=== PATIENT | female | born 2005 | race Two or more races ===

== ENCOUNTER 2024-07-11 08:25 | Emergency (ER) | payer MEDICAID, SELFPAY ==
--- NOTE | 2024-07-11 08:32 | EDNOTE_ITS ---
ED OB Contraction Preg RMI/HPI General Chief complaint: OB/Uterine Contractions Stated complaint: back pain , cramping, 13 weeks IUP , S/S X 1 DAY Time Seen by Provider: 07/11/24 08:41 Arrival date/time: 07/11/24 08:25 RME / HPI RME / HPI Narrative: This section includes all my notes and documentations, including HPI, PE, and ED course.? Matt Mabry MD HPI: 19 year old female who is currently about 13 weeks gestational age A2 presents to the ED for complaint of lower abdominal and back pain beginning 2 days ago. Described as cramping in sensation, rating as moderate. Denies any fevers, chills, sweats, vomiting, diarrhea, urinary symptoms, or vaginal bleeding. States she last had an ultrasound performed at 9 weeks gestation showing an IUP. No other complaints. ROS: All negative except as documented in HPI. Physical Exam: General:? Alert and oriented.? No acute distress when remaining still.?? Eyes:? Conjunctivae and lids clear.? ENT:? No nasal congestion.? Neck:? Supple.? Heart:? RRR.? Lungs:? No respiratory distress.? Good air movement.? Abdomen:? Soft and nontender.?? Back: No CVA tenderness. Legs:? No clubbing, cyanosis, edema.? Skin:? Warm and dry.?? Neuro:? Alert and oriented X 3.?? I reviewed all diagnostic test results. My review of the ultrasound report is IUP, GA 13 6/7 weeks. Blood tests and urine tests?unremarkable, except hCG [id number]. At this point, diagnoses include?threatened miscarriage. Recommended expectant management. Based on my best medical judgment, made decision no further evaluation or treatment indicated at this time.? Patient understands and agrees to the discha rge instructions customized and printed, see below. Discharge Instructions from Dr. Mabry: 1.? ? ? After evaluation, your baby is alive and doing well. 2.? ? ? Today, your GA is 13 6/7 weeks based on the ultrasound. 3.? ? ? Only time will determine whether you will have a successful or you will have a miscarriage.? If your symptoms stop, you can have a successful .? If your symptoms worsen with heavy bleeding, you may have a miscarriage.? If you have a miscarriage, unfortunately we won?t be able to save the baby because it?s too early.? Under 20 weeks, unfortunately we can?t help.?? 4.? ? ? See your natural history collections curator on 07/13/2024 for recheck and further care.? No sexual activity until cleared by a doctor taking care of you.?? Ask to review all test results and official radiology reports, to make sure you receive all necessary follow-ups and monitoring. Topical lidocaine patches as needed. 5.? ? ? Seek immediate medical care for severe bleeding (soaking more than 3 pads per hour), intolerable pain, or with any concerns.? Related Data Previous Rx's ?Medication ?Instructions ?Recorded albuterol sulfate 90 mcg/actuation 2 puff inhalation Q 6H PRN 07/13/19 aerosol inhaler (Ventolin HFA) shortness of breath or wheezing #8.5 grams amoxicillin 250 mg/5 mL oral 500 mg (10 mL) PO TID #10 0 mL 04/03/22 suspension lidocaine 5 % topical patch 2 patch topical QDAY PRN p ain #30 07/11/24 (Lidoderm) ea Allergies Allergy/AdvReac Type Severity Reaction Status Date / Time No Known Allergies Allergy Verified 07/11/24 08:26 Review of Systems Review of Systems Systems Reviewed: All systems reviewed, normal except as documented Past Medical History Past Medical History CARDIAC: Negative Cardiac Disorders GENITOURINARY: Negative Renal Disease Social History SMOKING STATUS: Never smoker SUBSTANCE USE: does not use ED Exam Narrative Physical exam: As noted in HPI Course Quality Measures none Orders Category Date Time Status US OB <= 14 weeks fetus Stat Exams 07/11/24 08:41 Completed Beta HCG,Quantitative Stat Lab 07/11/24 09:46 Completed CBC Stat Lab 07/11/24 09:46 Completed CMP [Comprehensive Metabolic Panel] Stat Lab 07/11/24 09:46 Completed Mag [Magnesium] Stat Lab 07/11/24 09:46 Completed Urinalysis Stat Lab 07/11/24 10:20 Completed Acetaminophen Tab [Tylenol Tab] Med 07/11/24 09:01 Discontinued 650 mg PO X1 ONE Acetaminophen Tab [Tylenol Tab] Med 07/11/24 09:01 Discontinued 650 mg PO X1 ONE oxyCODONE/APAP 5/325 [Percocet 5/325] Med 07/11/24 08:41 Discontinued 2 tab PO X1 ONE Vital Signs Vital signs: Vital Signs Temperature 98.6 F 07/11/24 08:34 Pulse Rate 87 07/11/24 08:34 Respiratory Rate 16 07/11/24 08:34 Blood Pressure 114/72 07/11/24 08:34 Pulse Oximetry (%) 99 07/11/24 08:34 Oxygen Delivery Method Room Air 07/11/24 08:34 Pulse ox is 99% on room air which is adequate. OB/Uterine Contractions MDM Narrative MDM Narrative:: Maryann Charles am scribing for and in the presence of Dr. Mabry. Patient data External records reviewed:: [facility] previous records (I reviewed ED visit on 04/21/2022) Clinical information provided by:: patient Social determinants that could affect healthcare access:: none Patient has the following chronic illnesses:: Hx of appendectomy, miscarriages, no chronic medical hx reported How is presenting disease/condition affected by chronic disease/condition?: no chronic disease Evaluation data The following diagnostics were reviewed and interpreted by me:: lab results and radiology exam(s) Lab and/or radiology exams considered but not ordered:: None Interpretation Summary: My review of the ultrasound performed shows viable IUP measuring 13w6d and heart tones at 157. Medications / Prescriptions Medications or Prescriptions considered but not ordered:: None Medication administrations:: Medication Administration History Discontinued Medications Acetaminophen (Acetaminophen 325 Mg Tablet) 650 mg PO X1 ONE Stop: 07/11/24 09:02 Last Admin: 07/11/24 09:08 Dose: 650 mg Documented By: [facility] Acetaminophen (Acetaminophen 325 Mg Tablet) 650 mg PO X1 ONE Stop: 07/11/24 09:02 Last Admin: 07/11/24 09:06 Dose: Not Given Documented By: [facility] Non-Admin Reason: Duplicate Medication on eMAR Oxycodone/Acetaminophen (Oxycodone/Apap 5/325 Tablet) 2 tab PO X1 ONE Stop: 07/11/24 08:42 Last Admin: 07/11/24 09:00 Dose: Not Given Documented By: [facility] Non-Admin Reason: Cancelled by Provider Patient given Tylenol Consultations Consultation(s) initiated? (list below): No Diagnosis OB Contractions Differential Diagnosis: other (Threatened , missed , normal , UTI, pyelonephritis) Most likely diagnosis given after review of the tests above:: Threatened miscarriage Admission Indicated Admission indicated?: not indicated Explain why admission is indicated or not indicated:: Does not meet admission criteria Admission Request Was there a request for admission?: No Disposition Plan Disposition Plan: Discharge Discharge Attestation Discharge Attestation: The patient and all family members were given an opportunity to ask questions and understood the discharge instructions. Discharge instructions specifically effects, indications for sooner follow up or return to the emergency department, and the expected course of current diagnosis. Patient condition: Stable Discharge Plan Plan Patient Disposition: HOME (Self Care) Disposition Comment: HOME Prescriptions/Referrals Prescriptions/Med Rec: New lidocaine [Lidoderm] 5 % adhesive patch,medicated 2 patch topical QDAY PRN (Reason: pain) Qty: 30 0RF Rx Instructions: leave on most painful area for up to 12 hrs No Action albuterol sulfate [Ventolin HFA] 90 mcg/actuation HFA aerosol inhaler 2 puff INH Q6H PRN (Reason: shortness of breath or wheezing) Qty: 8.5 0RF amoxicillin 250 mg/5 mL suspension for reconstitution 500 mg PO TID Qty: 100 0RF Referrals: Ryan Aldrich MD [Primary Care Provider] - In 1 week Problem List Clinical Impression: Threatened miscarriage Patient/Caregiver Discharge Instructions Discharge Activity: activity as tolerated Education Materials: ED Possible Miscarriage ... Additional Instructions: Discharge Instructions from Dr. Mabry: 1.? ? ? After evaluation, your baby is alive and doing well. 2.? ? ? Today, your GA is 13 6/7 weeks based on the ultrasound. 3.? ? ? Only time will determine whether you will have a successful or you will have a miscarriage.? If your symptoms stop, you can have a successful .? If your symptoms worsen with heavy bleeding, you may have a miscarriage.? If you have a miscarriage, unfortunately we won?t be able to save the baby because it?s too early.? Under 20 weeks, unfortunately we can?t help.?? 4.? ? ? See your natural history collections curator on 07/13/2024 for recheck and further care.? No sexual activity until cleared by a doctor taking care of you.?? Ask to review all test results and official radiology reports, to make sure you receive all necessary follow-ups and monitoring. Topical lidocaine patches as needed. 5.? ? ? Seek immediate medical care for severe bleeding (soaking more than 3 pads per hour), intolerable pain, or with any concerns.? Print Language: Egyptian Stand Alone Forms: Radha Award Info., Patient Portal Info Letter
[2024-07-11 08:34] VITALS: BP 114/72; PULSE 87; RESP 16; TEMP 37; O2SAT 99; BMI 29.5
--- NOTE | 2024-07-11 08:41 | XR_ITS ---
Examination: Complete OB ultrasound, less than 14 weeks, transabdominal Date and time of exam: July 03, 2024 0908 hours INDICATIONS: Lower abdominal pain back pain onset today Technique: Obstetrical ultrasound images less than 14 weeks performed via transabdominal imaging Findings: A normal shaped single intrauterine gestation is present in the uterus. pole 7.8 cm corresponds to 13 weeks 6 days gestational age Cardiac motion 157 BPM Ultrasonographic survey of visible and placental structures unremarkable. Amniotic fluid volume appears appropriate for this estimated gestational age. Right ovary 2.9 x 1.8 x 4.7 cm arterial flow Left ovary 5.6 x 1.8 x 3.5 cm, 20 mm corpus luteum cyst IMPRESSION: Viable intrauterine gestation 13 weeks 6 days.
[2024-07-11] MEDS: ACETAMINOPHEN 325 MG TABLET 650 MG PO (09:08)
[2024-07-11 10:07] LABS: Basophils % (Auto) 0 % (0-2.5); Eosinophils # (Auto) 0.1 Thou/mm3 (0.0-0.5); Eosinophils % (Auto) 1 % (0-10); Hematocrit 36.3 % (36.0-46.0); Immature Granulocytes % (Auto) 0 % (0-0); Immature Granulocytes Auto 0.03 Thou/mm3 (0.00-0.00); Lymphocytes # (Auto) 2.8 Thou/mm3 (1.0-4.8); Lymphocytes % (Auto) 28 % (10-50); Mean Corpuscular HGB Conc 33.1 g/dl (31.0-37.0); Mean Corpuscular Hemoglobin 27.1 pg (25.0-35.0); Mean Corpuscular Volume 82 fL (80-100); Monocytes # (Auto) 0.6 Thou/mm3 (0.0-0.8); Monocytes % (Auto) 6 % (0-12); Neutrophils # (Auto) 6.2 Thou/mm3 (1.8-7.7); Neutrophils % (Auto) 64 % (37-80); Nucleated Red Blood Cell % 0 /100 WBC (0); Platelet Count 250 Thou/mm3 (140-440); RDW Standard Deviation 39.2 fL (36.4-46.3); Red Blood Count 4.42 Miln/mm3 (4.00-5.20); White Blood Count 9.7 Thou/mm3 (3.6-11.0)
[2024-07-11 10:27] LABS: Collection Type, Urine Clean Catch
[2024-07-11 10:41] LABS: Alanine Aminotransferase 19 U/L (10-49); Albumin, Serum 4.5 gm/dL (3.5-5.0); Albumin/Globulin Ratio 1.6 (1.2-2.2); Alkaline Phosphatase 59 U/L (46-116); Anion Gap 9 (7-16); Aspartate Amino Transferase < 10 U/L (0-34); BUN/Creatinine Ratio 8 Ratio (12-20); Bilirubin,Total 0.3 mg/dL (0.3-1.2); Blood Urea Nitrogen 5 mg/dL (9-23); Calcium 9.4 mg/dL (8.3-10.6); Calcium (Corrected) 9.4 mg/dL (8.5-10.1); Chloride 103 mMol/L (98-107); Creatinine (Component) 0.6 mg/dL (0.6-1.3); Globulin 2.8 gm/dL (2.3-3.5); Glucose 106 mg/dL (74-106); Magnesium 1.8 mg/dL (1.6-2.6); Osmolality,Calculated 267 (275-295); Potassium 4.2 mMol/L (3.4-5.1); Sodium 135 mMol/L (136-145); Total Protein 7.3 gm/dL (5.7-8.2); eGFR > 60 See Note
[2024-07-11 10:49] LABS: Amorphous Crystals,Urine Present (Absent); Bilirubin,Urine Negative (Negative); Blood,Urine Negative (Negative); Color,Urine Yellow (Lt Yel-Yel); Glucose, Urine Negative (Negative); Ketones,Urine Negative (Negative); Leukocyte Esterase,Urine Positive (Negative); Nitrite,Urine Negative (Negative); Protein,Urine 1+ (Neg - Trace); RBC,Urine 1 /hpf (0-3); Specific Gravity,Urine 1.023 (1.001-1.035); Squamous Epithelial Cell,Urine 26 /hpf (0-5); WBC,Urine 3 /hpf (0-5)
[2024-07-11 10:51] LABS: Clarity,Urine Turbid (Clear/Hazy)
[2024-07-11 11:22] LABS: Beta HCG,Quantitative 69419 mIU/mL (<5.0)
== END 2024-07-11 12:38 | disposition home or self-care (01) ==
PROVIDERS: Emergency Provider Emergency Medicine; PCP Family Medicine
DX: O20.0 Threatened abortion (principal); Z3A.13 13 weeks gestation of pregnancy
CPT/HCPCS: 36415; 76801; 80053; 81001; 83735; 84702; 85025; 99284; A9270

== ENCOUNTER 2024-09-08 01:51 | Emergency (ER) | payer MEDICAID, SELFPAY ==
[2024-09-08 01:51] VITALS: BMI 23.1
[2024-09-08 02:00] VITALS: BP 122/80; PULSE 72; RESP 18; TEMP 36.9; O2SAT 99
--- NOTE | 2024-09-08 03:55 | EDNOTE_ITS ---
ED Ear RME/HPI General Chief complaint: Ear Stated complaint: BUG IN RT EAR Time Seen by Provider: 09/08/24 02:12 Arrival date/time: 09/08/24 01:51 19F with no significant PMH presents to ED with bug in R ear. Patient states she felt it stop moving prior to arrival in ED. Limitations: no limitations Related Data Previous Rx's ?Medication ?Instructions ?Recorded albuterol sulfate 90 mcg/actuation 2 puff inhalation Q 6H PRN 07/13/19 aerosol inhaler (Ventolin HFA) shortness of breath or wheezing #8.5 grams amoxicillin 250 mg/5 mL oral 500 mg (10 mL) PO TID #10 0 mL 04/03/22 suspension lidocaine 5 % topical patch 2 patch topical QDAY PRN p ain #30 07/11/24 (Lidoderm) ea [id number] 3.5 4 drp otic (ear) TID 5 days #10 mL 09/08/24 mg-10,000 unit/mL-1 % ear drops,susp Allergies Allergy/AdvReac Type Severity Reaction Status Date / Time No Known Allergies Allergy Verified 07/11/24 08:26 Review of Systems Review of Systems Systems Reviewed: All systems reviewed, normal except as documented Constitutional Constitutional: Reports system reviewed and no additional complaints, except as documented, Denies fever(s) and Denies headache(s) ENT Ears, Nose, Mouth, and Throat: Denies disequilibrium and Denies headache(s) Cardiovascular Cardiovascular: Reports system reviewed and no additional complaints, except as documented, Denies chest pain and Denies dyspnea Respiratory Respiratory: Reports system reviewed and no additional complaints, except as documented, Denies cough and Denies dyspnea Gastrointestinal Gastrointestinal: Reports system reviewed and no additional complaints, except as documented, Denies abdominal pain, Denies nausea and Denies vomiting Neurologic Neurologic: Reports system reviewed and no additional complaints, except as documented, Denies confusion, Denies disequilibrium and Denies headache(s) Psychiatric Psychiatric: Denies confusion Past Medical History Past Medical History NEUROLOGIC: Negative Seizures CARDIAC: Negative Cardiac Disorders or Congestive Heart Failure RESPIRATORY: Negative Chronic Obstructive Pulmonary Disease (COPD) or Asthma GENITOURINARY: Negative Renal Disease ENDOCRINE: Negative Diabetes Mellitus Type 1 or Diabetes Mellitus Type 2 HEMATOLOGIC: Negative Sickle Cell Disease OTHER HISTORY: Negative Blood Transfusions, Blood Transfusion Reaction or Anesthesia Reactions Social History SMOKING STATUS: Never smoker SUBSTANCE USE: does not use ED Exam General Limitations: Present no limitations General appearance: Present alert and in no apparent distress Head Head exam: Present atraumatic Eye Eye exam: Present normal appearance, PERRL and EOMI ENT ENT exam: Present normal exam, normal oropharynx and mucous membranes moist Neck Neck exam: Present normal inspection, full ROM and trachea midline Chest Chest inspection: Present normal inspection and symmetric chest wall rise Respiratory Respiratory exam: Present normal lung sounds bilaterally Cardiovascular Cardiovascular exam: Present regular rate, normal rhythm and normal heart sounds Abdominal Exam Abdominal exam: Present soft and normal bowel sounds Extremities Exam Extremities exam: Present normal inspection and full ROM Back Exam Back exam: Present normal inspection and full ROM Neurological Exam Neurological exam: Present alert, oriented X3 and CN II-XII intact Psychiatric Psychiatric exam: Present normal affect and normal mood Skin Skin exam: Present warm, dry, intact and normal color Course Quality Measures none Vital Signs Vital signs: Vital Signs Temperature 98.5 F 09/08/24 02:00 Pulse Rate 72 09/08/24 02:00 Respiratory Rate 18 09/08/24 02:00 Blood Pressure 122/80 09/08/24 02:00 Pulse Oximetry (%) 99 09/08/24 02:00 Oxygen Delivery Method Room Air 09/08/24 02:00 O2 at 99% on RA and WNLs Ear MDM Narrative MDM Narrative:: 19F with no significant PMH presents to ED with bug in R ear. Patient states she felt it stop moving prior to arrival in ED. Physical exam reveals no bug in R ear, even after irrigation. Patient is afebrile, calm, and alert. Bug likely crawled out prior to arrival in ED. Patient data External records reviewed:: [facility] previous records Clinical information provided by:: patient Social determinants that could affect healthcare access:: none Patient has the following chronic illnesses:: none How is presenting disease/condition affected by chronic disease/condition?: no chronic disease Evaluation data The following diagnostics were reviewed and interpreted by me:: other (specify) (none) Lab and/or radiology exams considered but not ordered:: not ordered Interpretation Summary: n/a Medications / Prescriptions Medications or Prescriptions considered but not ordered:: not ordered Medication administrations:: n/a Consultations Consultation(s) initiated? (list below): No Diagnosis Ear Differential Diagnosis: otitis externa, otitis media, foreign body in ear, ruptured TM, cerumen impaction and other (normal ear exam) Most likely diagnosis given after review of the tests above:: normal ear exam Admission Indicated Admission indicated?: not indicated Admission Request Was there a request for admission?: No Disposition Plan Disposition Plan: Discharge Discharge Attestation Discharge Attestation: The patient and all family members were given an opportunity to ask questions and understood the discharge instructions. Discharge instructions specifically effects, indications for sooner follow up or return to the emergency department, and the expected course of current diagnosis. Patient condition: Stable Discharge Plan Plan Patient Disposition: HOME (Self Care) Disposition Comment: Stable Prescriptions/Referrals Prescriptions/Med Rec: New qxielrhl-ugyywnjgq-HH 3.5-10,000-1 mg/mL-unit/mL-% drops,suspension 4 drp otic (ear) TID 5 Days Qty: 10 0RF No Action albuterol sulfate [Ventolin HFA] 90 mcg/actuation HFA aerosol inhaler 2 puff INH Q6H PRN (Reason: shortness of breath or wheezing) Qty: 8.5 0RF lidocaine [Lidoderm] 5 % adhesive patch,medicated 2 patch topical QDAY PRN (Reason: pain) Qty: 30 0RF Rx Instructions: leave on most painful area for up to 12 hrs amoxicillin 250 mg/5 mL suspension for reconstitution 500 mg PO TID Qty: 100 0RF Problem List Clinical Impression: Normal ear exam Patient/Caregiver Discharge Instructions Additional Instructions: Please follow-up with PCP within 24-48 hours and return immediately if symptoms worsen. Print Language: Maori Stand Alone Forms: Patient Portal Info Letter [place] Supervising Physician ASHA Supervising Physician: Dr. Hackett
== END 2024-09-08 02:25 | disposition home or self-care (01) ==
LOC: SERX 02:25
PROVIDERS: Emergency Provider Emergency Medicine; PCP Family Medicine
DX: T16.1XXA Foreign body in right ear, initial encounter (principal); W44.F4XA Insect entering into or through a natural orifice, initial encounter
CPT/HCPCS: 99281; 99283

== ENCOUNTER 2024-11-14 19:33 | Observation (INO) | payer MEDICAID, SELFPAY ==
[2024-11-14] VITALS (35 sets, daily range): BP systolic 111; BP diastolic 76; PULSE 75–129; RESP 16–98; TEMP 36.8; O2SAT 97–100; BMI 31.0
--- NOTE | 2024-11-14 20:22 | XR_ITS ---
Examination: Complete OB ultrasound greater than 14 weeks Date and time of exam: November 14, 2024 2113 hours INDICATION: Patient fell today with injury to the pelvis, vaginal bleeding Findings: Viable intrauterine single fetus with single amniotic sac presentation cephalic Cardiac motion 141 BPM Placenta anterior grade 2 no abruption Umbilical cord insertion 3 vessel Amniotic fluid index 11.4 cm spine maternal right Cervix 3.2 cm Ovaries obscured by bowel gas. Composite estimated gestational age based on BPD, head circumference, abdominal circumference, femur length is 33 weeks 3 days Estimated weight 2095 g. Survey of intracranial anatomy, spinal anatomy, abdominal anatomy, four-chamber heart performed with no abnormalities identified. Impression: Viable intrauterine gestation cephalic presentation Placenta anterior with no abruption.
== END 2024-11-14 22:50 | disposition home or self-care (01) ==
PROVIDERS: Admitting Provider Obstetrics & Gynecology; Visit Provider Obstetrics & Gynecology
DX: O9A.213 Injury, poisoning and certain other consequences of external causes complicating pregnancy, third trimester (principal); S39.93XA Unspecified injury of pelvis, initial encounter; Z3A.33 33 weeks gestation of pregnancy; W18.2XXA Fall in (into) shower or empty bathtub, initial encounter
CPT/HCPCS: 59025; 59899; 76805; G0378

== ENCOUNTER 2024-12-22 15:04 | Observation (INO) | payer MEDICAID, SELFPAY ==
[2024-12-22] VITALS (23 sets, daily range): BP systolic 117–133; BP diastolic 60–89; PULSE 79–117; RESP 18–99; TEMP 36.4; O2SAT 99–100; BMI 33.3
[2024-12-22 15:51] LABS: Basophils # (Auto) 0.0 Thou/mm3 (0.0-0.2); Basophils % (Auto) 0 % (0-2.5); Eosinophils # (Auto) 0.0 Thou/mm3 (0.0-0.5); Eosinophils % (Auto) 0 % (0-10); Hematocrit 29.8 % (36.0-46.0); Hemoglobin 9.5 g/dL (12.0-16.0); Immature Granulocytes Auto 0.04 Thou/mm3 (0.00-0.00); Lymphocytes # (Auto) 2.4 Thou/mm3 (1.0-4.8); Lymphocytes % (Auto) 21 % (10-50); Mean Corpuscular HGB Conc 31.9 g/dl (31.0-37.0); Mean Corpuscular Hemoglobin 22.8 pg (25.0-35.0); Mean Corpuscular Volume 72 fL (80-100); Monocytes # (Auto) 0.7 Thou/mm3 (0.0-0.8); Monocytes % (Auto) 6 % (0-12); Neutrophils # (Auto) 8.2 Thou/mm3 (1.8-7.7); Neutrophils % (Auto) 72 % (37-80); Nucleated Red Blood Cell # 0.00 Thou/mm3 (0.00-0.00); Nucleated Red Blood Cell % 0 /100 WBC (0); Platelet Count 327 Thou/mm3 (140-440); RDW Standard Deviation 37.4 fL (36.4-46.3); Red Blood Count 4.17 Miln/mm3 (4.00-5.20); White Blood Count 11.4 Thou/mm3 (3.6-11.0)
[2024-12-22 16:07] LABS: Creatinine,Random Urine 138 mg/dL (30-125); Protein Total, Random Urine 36 mg/dL (1-14)
[2024-12-22 16:08] LABS: Alanine Aminotransferase 12 U/L (10-49); Albumin, Serum 3.8 gm/dL (3.5-5.0); Albumin/Globulin Ratio 1.4 (1.2-2.2); Alkaline Phosphatase 155 U/L (46-116); Anion Gap 10 (7-16); Aspartate Amino Transferase 12 U/L (0-34); BUN/Creatinine Ratio 12 Ratio (12-20); Bilirubin,Total 0.3 mg/dL (0.3-1.2); Blood Urea Nitrogen 7 mg/dL (9-23); Calcium 8.7 mg/dL (8.3-10.6); Calcium (Corrected) 8.9 mg/dL (8.5-10.1); Carbon Dioxide 20.6 mMol/L (20.0-31.0); Chloride 107 mMol/L (98-107); Creatinine (Component) 0.6 mg/dL (0.6-1.3); Estimated Creatinine Clearance 159.3 mL/min (>60); Globulin 2.8 gm/dL (2.3-3.5); Glucose 105 mg/dL (74-106); LDH (Lactate Dehydrogenase) 130 U/L (120-246); Osmolality,Calculated 273 (275-295); Potassium 4.3 mMol/L (3.4-5.1); Sodium 138 mMol/L (136-145); Total Protein 6.6 gm/dL (5.7-8.2); Uric Acid 4.2 mg/dL (3.1-7.8); eGFR > 60 See Note
[2024-12-22 16:23] LABS: Fibrinogen 547 mg/dL (175-375); INR 0.9 (0.9-1.3); Partial Thromboplastin Time 20.8 Seconds (22.0-36.0); Prothrombin Time 9.9 Seconds (9.0-12.2)
--- NOTE | 2024-12-22 16:43 | PC.NURSE ---
1642 discharge instructions reviewed, labor precautions, pre eclampsia precautions, kick counts, copy given, pt agrees/understands.
== END 2024-12-22 16:45 | disposition home or self-care (01) ==
PROVIDERS: Admitting Provider Student in an Organized Health Care Education/Training Program; Visit Provider Student in an Organized Health Care Education/Training Program
DX: O26.893 Other specified pregnancy related conditions, third trimester (principal); Z3A.36 36 weeks gestation of pregnancy; R03.0 Elevated blood-pressure reading, without diagnosis of hypertension
CPT/HCPCS: 36415; 59025; 59899; 80053; 82570; 83615; 84156; 84550; 85025; 85384; 85610; 85730

== ENCOUNTER 2024-12-23 14:34 | Observation (INO) | payer MEDICAID, SELFPAY ==
[2024-12-23] VITALS (8 sets, daily range): BP systolic 124–125; BP diastolic 76–78; PULSE 93–122; RESP 20–100; TEMP 36.3; O2SAT 99–100; BMI 33.3
== END 2024-12-23 15:15 | disposition home or self-care (01) ==
PROVIDERS: Admitting Provider Student in an Organized Health Care Education/Training Program; PCP Family Medicine; Visit Provider Student in an Organized Health Care Education/Training Program
DX: O26.893 Other specified pregnancy related conditions, third trimester (principal); Z3A.36 36 weeks gestation of pregnancy; R10.2 Pelvic and perineal pain; M54.9 Dorsalgia, unspecified
CPT/HCPCS: 59025; 59899

== ENCOUNTER 2025-01-02 21:21 | Observation (INO) | payer MEDICAID, SELFPAY ==
[2025-01-02] VITALS (12 sets, daily range): BP systolic 108; BP diastolic 69; PULSE 78–151; RESP 18–99; TEMP 36.8; O2SAT 97–99; BMI 34.7
== END 2025-01-02 22:30 | disposition home or self-care (01) ==
PROVIDERS: Admitting Provider Student in an Organized Health Care Education/Training Program; Visit Provider Student in an Organized Health Care Education/Training Program
DX: O47.1 False labor at or after 37 completed weeks of gestation (principal); Z3A.38 38 weeks gestation of pregnancy
CPT/HCPCS: 59025; 59899

== ENCOUNTER 2025-01-04 11:40 | Outpatient (RCR) | payer MEDICAID, SELFPAY ==
[2024-11-20 11:34] VITALS: BP 112/61; PULSE 93; RESP 16; TEMP 36.8
[2024-11-23 12:55] VITALS: BP 109/61; PULSE 102; RESP 16
[2024-11-27 11:56] VITALS: BP 109/69; PULSE 122; RESP 20; TEMP 36.8
[2024-11-30 11:41] VITALS: BP 109/76; PULSE 108; RESP 16; TEMP 36.7
[2024-12-04 12:05] VITALS: BP 120/74; PULSE 77; RESP 16; TEMP 36.8
[2024-12-07 11:56] VITALS: BP 119/72; PULSE 105; RESP 16; TEMP 36.7
[2024-12-11 11:28] VITALS: BP 119/80; PULSE 103; RESP 16; TEMP 36.7
[2024-12-14 11:26] VITALS: BP 114/79; PULSE 89; RESP 16; TEMP 36.8
[2024-12-18 11:19] VITALS: BP 112/73; PULSE 81; RESP 16; TEMP 36.8
[2024-12-21 11:17] VITALS: BP 119/68; PULSE 86; RESP 16; TEMP 36.8
[2024-12-25 11:26] VITALS: BP 119/77; PULSE 92; RESP 16; TEMP 36.7
[2024-12-28 11:28] VITALS: BP 124/74; PULSE 89; RESP 16; TEMP 36.7
--- NOTE | 2025-01-01 11:49 | XR_ITS ---
Examination: Biophysical profile, ultrasound Date and time of exam: January 01, 2025 1209 hours INDICATIONS: Decreased movement beginning 2 days ago Technique: Multiple transabdominal sonographic images of the pelvis abdomen obtained. Attention is directed to the breathing movement, gross body movement, amniotic fluid volume and tone. Findings: Amniotic fluid index 9.6 cm Total biophysical profile is 8 of 8. breathing movement is 2. Gross body movement is 2. tone is 2. Qualitative amniotic fluid volume is 2 Impression: Biophysical profile is 8 of 8.
[2025-01-01 12:38] VITALS: BP 126/80; PULSE 88; RESP 18; TEMP 36.8
[2025-01-04 11:54] VITALS: BP 119/66; PULSE 75; RESP 16; TEMP 36.7
== END 2025-01-04 23:59 | disposition home or self-care (01) ==
LOC: S4S1 11:40
PROVIDERS: Referring Provider Student in an Organized Health Care Education/Training Program; Visit Provider Student in an Organized Health Care Education/Training Program
DX: O24.415 Gestational diabetes mellitus in pregnancy, controlled by oral hypoglycemic drugs (principal); Z3A.38 38 weeks gestation of pregnancy
CPT/HCPCS: 59025; 76819

== ENCOUNTER 2025-01-07 19:02 | Inpatient (IN) | payer MEDICAID, SELFPAY ==
[2025-01-07] VITALS (27 sets, daily range): BP systolic 111–168; BP diastolic 64–98; PULSE 62–129; RESP 16; TEMP 36.7; O2SAT 96–99; BMI 34.3
[2025-01-07 19:50] LABS: Basophils # (Auto) 0.0 Thou/mm3 (0.0-0.2); Basophils % (Auto) 0 % (0-2.5); Eosinophils # (Auto) 0.0 Thou/mm3 (0.0-0.5); Eosinophils % (Auto) 0 % (0-10); Hematocrit 31.9 % (36.0-46.0); Hemoglobin 9.8 g/dL (12.0-16.0); Immature Granulocytes Auto 0.03 Thou/mm3 (0.00-0.00); Lymphocytes # (Auto) 2.8 Thou/mm3 (1.0-4.8); Lymphocytes % (Auto) 27 % (10-50); Mean Corpuscular HGB Conc 30.7 g/dl (31.0-37.0); Mean Corpuscular Hemoglobin 22.4 pg (25.0-35.0); Mean Corpuscular Volume 73 fL (80-100); Monocytes # (Auto) 0.6 Thou/mm3 (0.0-0.8); Monocytes % (Auto) 6 % (0-12); Neutrophils # (Auto) 7.0 Thou/mm3 (1.8-7.7); Neutrophils % (Auto) 67 % (37-80); Nucleated Red Blood Cell # 0.00 Thou/mm3 (0.00-0.00); Nucleated Red Blood Cell % 0 /100 WBC (0); Platelet Count 330 Thou/mm3 (140-440); RDW Standard Deviation 40.0 fL (36.4-46.3); Red Blood Count 4.38 Miln/mm3 (4.00-5.20); White Blood Count 10.5 Thou/mm3 (3.6-11.0)
--- NOTE | 2025-01-07 20:33 | XR_ITS ---
Examination: Complete OB ultrasound greater than 14 weeks Date and time of exam: January 07, 2025 2045 hours INDICATIONS: Unknown presentation Findings: Viable intrauterine single fetus with single amniotic sac presentation cephalic Cardiac motion 171 BPM Placenta anterior grade 3 Cervical CORD insertion seen Amniotic fluid index 13 cm Cervix 3.4 cm Ovaries obscured by bowel gas. Composite estimated gestational age based on BPD, head circumference, abdominal circumference, femur length is 39 weeks 5 days Estimated weight 3921 g. Survey of intracranial anatomy, spinal anatomy, abdominal anatomy, four-chamber heart performed with no abnormalities identified. Impression: Viable intrauterine gestation cephalic presentation.
[2025-01-07 21:28] LABS: Alanine Aminotransferase 7 U/L (10-49); Albumin, Serum 3.3 gm/dL (3.5-5.0); Albumin/Globulin Ratio 1.3 (1.2-2.2); Alkaline Phosphatase 157 U/L (46-116); Anion Gap 10 (7-16); Aspartate Amino Transferase 12 U/L (0-34); BUN/Creatinine Ratio 13 Ratio (12-20); Bilirubin,Total 0.2 mg/dL (0.3-1.2); Blood Urea Nitrogen 8 mg/dL (9-23); Calcium 8.8 mg/dL (8.3-10.6); Calcium (Corrected) 9.4 mg/dL (8.5-10.1); Carbon Dioxide 20.4 mMol/L (20.0-31.0); Chloride 108 mMol/L (98-107); Creatinine (Component) 0.6 mg/dL (0.6-1.3); Estimated Creatinine Clearance 161.8 mL/min (>60); Globulin 2.6 gm/dL (2.3-3.5); Glucose 117 mg/dL (74-106); LDH (Lactate Dehydrogenase) 149 U/L (120-246); Osmolality,Calculated 274 (275-295); Potassium 4.2 mMol/L (3.4-5.1); Sodium 138 mMol/L (136-145); Total Protein 5.9 gm/dL (5.7-8.2); Uric Acid 5.2 mg/dL (3.1-7.8); eGFR > 60 See Note
[2025-01-07] MEDS: INSULIN GLARGINE (Lantus) 5 UNIT/0.05 ML (PER 5 UNITS) 15 UNIT SC (21:53)
[2025-01-07 21:57] LABS: Syphilis Nonreactive (Nonreactive)
[2025-01-07] MEDS: RINGERS LACTATED 1000 ML 1,000 ML 125 ML IV (22:25)
[2025-01-07 22:39] LABS: Creatinine,Random Urine 199 mg/dL (30-125); Protein Total, Random Urine > 250 mg/dL (1-14)
--- NOTE | 2025-01-07 23:44 | PD.LDHP ---
Documentation for date of: 01/07/25 OB Labor/Induct. HPI History of Present Illness Chief complaint: Induction of labor : 3 Para: 0 Term pregnancies: 0 pregnancies: 0 Living children: 0 History of Abortions: Spontaneous and Elective: 2 History of Vaginal deliveries: 0 History of sections: No History of : No KAYLA: 01/14/25 Gestational Age (weeks): 39 Gestational Age (days): 0 History of present illness: 19-year-old 3 para 0-0-2-0 at 39 weeks and 0 days with insulin-dependent gestational diabetes presents for induction of labor. Patient denies any contractions or leakage of fluid or vaginal bleeding and reports adequate movements She received care at [facility] and her records were reviewed as scanned in Patient was on 15 units of Humulin twice daily. Labs Labs: Negative: RPR, Hepatitis B, Rubella Titre, HIV, Chlamydia, Gonorrhea and Group Beta Strep and Unknown: Herpes Type 1, Herpes Type 2 and Covid-19 Review of Systems Review of Systems Systems Reviewed: All systems reviewed, normal except as documented Past Medical History Surgical History SURGICAL: Negative Section Meds Home Medications and Allergies Home Medications ?Medication ?Instructions ?Recorded ?Confirmed ?Type vit no.95-ferrous 1 tab PO QDAY 11/14/24 01/02/25 History fumarate 28 mg-folic acid 800 mcg tablet () insulin NPH isoph U-100 human 100 15 unit subcut BID Gestational 01/02/25 01/02/25 History unit/mL (3 mL) subcutaneous pen Diabetes (Humulin N NPH U-100 Insulin KwikPen) Allergies Allergy/AdvReac Type Severity Reaction Status Date / Time No Known Allergies Allergy Verified 01/02/25 21:53 OB Exam Physical Exam Vital signs: Temp Pulse Resp BP Pulse Ox O2 Del Method 98.1 F 75 16 137/85 H 99 Room Air 01/07/25 21:00 01/07/25 23:23 01/07/25 21:00 01/07/25 23:23 01/07/25 23:40 01/07/25 21:00 Constitutional Constitutional: no acute distress Routine HEENT Exam Head: Present normocephalic and atraumatic Eye: Present EOMI and PERRL ENT: Present mucous membranes moist Routine Neck Exam Neck: Present supple and trachea midline Routine Cardiovascular Exam Cardiovascular: Present RRR Routine Abdominal Exam Abdominal: Present soft and normoactive bowel sounds Detailed Labor and Delivery Exam Dilation (cm): 1 Effacement (%): 0 Cervix position: posterior station: -3 Consistency: firm Presentation: Vertex Baseline heart rate: 150 monitor accelerations: 15x15 monitor 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 (6-10) Routine Extremities Exam Extremities: Present full ROM Routine Skin Exam Skin: Present intact, dry and warm Routine Neurological Exam Neurological: Present alert, oriented X3 and CN II-XII intact Routine Psychiatric Exam Psychiatric: Present normal affect and normal thought process OB Results Labs 01/07/25 19:30 01/07/25 20:50 Labs: Short CBC 01/07/25 Range/Units 19:30 WBC 10.5 (3.6-11.0) Thou/mm3 Hgb 9.8 L (12.0-16.0) g/dL Hct 31.9 L (36.0-46.0) % Plt Count 330 (140-440) Thou/mm3 BMP 01/07/25 20:50 Sodium 138 Potassium 4.2 Chloride 108 H Carbon Dioxide 20.4 BUN 8 L Creatinine 0.6 Glucose 117 H Calcium 8.8 Liver Function 01/07/25 Range/Units 20:50 Total Bilirubin 0.2 L (0.3-1.2) mg/dL AST 12 (0-34) U/L ALT 7 L (10-49) U/L Alkaline Phosphatase 157 H (46-116) U/L Albumin 3.3 L (3.5-5.0) gm/dL OB Assessment & Plan Assessment and Plan (1) Encounter for induction of labor: Status: Acute Assessment and plan: Admit to inpatient status for induction of labor IV access, LR at 125 cc/h, labs to include CBC type and screen RPR GBS negative Will continue insulin regimen but since the inpatient pharmacy does not have Humulin we will proceed to use Lantus along with sliding scale coverage for mealtime during the ripening/latent phase of labor When in active phase of labor will proceed to the a cog recommended IV insulin with D5 regimen Cervical ripening with dinoprostone /misoprostol, proceed to oxytocin when Laboy score is favorable Continuous maternal monitoring Epidural when desired (2) Type 2 diabetes mellitus affecting in third trimester, antepartum: Status: Acute
[2025-01-08] VITALS (129 sets, daily range): BP systolic 111–160; BP diastolic 57–103; PULSE 55–100; RESP 16–20; TEMP 36.7–37.1; O2SAT 92–100
[2025-01-08] MEDS: RINGERS LACTATED 1000 ML 1,000 ML 125 ML IV ×3 (00:04→12:58)
[2025-01-08 00:05] LABS: Amphetamine/Metham Scrn,Ur OB Negative (Negative); Benzoylecgonine Screen, Ur OB Negative (Negative); Opiate Screen,Urine OB Negative (Negative); THC Screen,Urine OB Negative (Negative)
[2025-01-08] MEDS: ACETAMINOPHEN 500 MG TABLET 1000 MG PO (00:24)
[2025-01-08] MEDS: LABETALOL 100 MG TABLET 200 MG PO ×2 (00:25→08:29)
[2025-01-08] MEDS: fentaNYL CIT INJ 50 mCg/ML AMP 2ML 100 MCG IVP ×2 (08:04→09:34)
[2025-01-08] MEDS: INSULIN GLARGINE (Lantus) 5 UNIT/0.05 ML (PER 5 UNITS) 15 UNIT SC (08:31)
[2025-01-08] MEDS: ONDANSETRON INJ 2 MG/ML INJ 2 ML 4 MG IVP (12:03)
[2025-01-08] MEDS: OXYTOCIN in NS 20 units 20 UNIT/1,000 ML BAG 125 UNIT IV (16:40)
--- NOTE | 2025-01-08 17:49 | OBDSUM_ITS ---
Data (Vergara) Data Hx Section: No Maternal Blood Type: A Pos Rubella Titre: Positive RPR: Non-reactive Labs: Negative: RPR, Hepatitis B, HIV, Chlamydia, Gonorrhea and Group Beta Strep and Unknown: Herpes Type 1 and Herpes Type 2 : 3 Term: 0 : 0 Livin Abortions: Spontaneous & Theraputic: 2 Delivery Data (Vergara) Labor Data Initiation of labor: Induction Induction/Augmentation Agent: Cervidil ROM date: 01/08/25 ROM time: 11:21 Amniotic membrane rupture type: Artificial Amniotic fluid description: Clear Delivery Data EDC: 01/14/25 EDC calculated by:: LMP/early US confirmation Date of arrival to unit: 01/07/25 Time of arrival to unit: 22:00 Onset of labor date: 01/08/25 Onset of labor time: 01:52 Complete dilation date: 01/08/25 Complete dilation time: 14:30 delivery date: 01/08/25 delivery time: 16:19 Gestational age (weeks): 39 Gestational age (days): 1 Placenta delivery date: 01/08/25 Placenta delivery time: 16:23 Stage 1 total time: Labor - Stage 1 Duration 12 hours and 38 minutes Delivered by: dr banda Delivery nurse: bouchra riddle Neworn nurse: emily riddle Buggy Man at delivery: No Support person(s) at delivery: fob Delivery Method Delivery method: Normal Vaginal Delivery Presentation: Vertex position: OA Anesthesia Type Anesthesia Type: Epidural Delivery Room Medications Delivery room medications: Pitocin 20 u IV Placenta Placenta delivery description: Spontaneous cord blood collection: Cord Blood Type, Arterial Cord Blood Gas and Venous Cord Blood Gas Episiotomy Episiotomy description: None Lacerations #1: Perineal: 2nd degree Perineal repair Sutures used for repair: other (2-0 Chromic) EBL Estimated blood loss (ml): 200 Umbilical Cord cord description: 3 Vessels Additional Procedures The patient is a 19-year-old G3 now P1021 presented to the hospital the evening of 01/07/2025 for scheduled induction of labor secondary to insulin requiring gestational diabetes. care was up-to-date and on the chart with [facility]. Patient was 1 cm dilated on presentation admitted by Dr. Wang. She had Cervidil placed. I examined the patient approximately 8:00 in the morning on 01/08/2025 as she wanted pain medication and she was 3 cm dilated. Patient had epidural placed later in the morning. She progressed to 4 cm dilatation by lunchtime and I performed an amniotomy approximately 1:00 in the afternoon. Patient was complete about 2 hours later. She was allowed to labor down until she felt pressure. She began pushing on and off approximately at 1545. She pushed a total of 20 minutes delivering a liveborn female at 1619. Findings: Liveborn female in the CAROLINE presentation with no nuchal cord and light meconium Apgars were 8 and 9 weight was 8 pounds 7 ounces the baby was vigorous and went to mom's chest where the baby was having some gagging. The cord was clamped and cut and the infant was handed off to the pediatric nurse at bedside to the warmer to be suction. Cord gases were sent as was Cord blood. The placenta was complete spontaneous grossly normal delivering at 1623. Patient sustained a second-degree perineal laceration repaired in a standard fashion using 2-0 chromic and 4-0 chromic. EBL was 200 cc. Complications were none. Condition both mom and were in stable condition in the delivery room. Complications Complications: None Data (Vergara) [place] Data order: 1 's gender: Female Identification band number: [id number] weight (gms): 3830 g Weight (pounds): 8 lbs and 7.1 ozs [place] length: 56 cm 1 minute: 8 5 minutes: 9
[2025-01-08] MEDS: IBUPROFEN TAB 400 MG TABLET 800 MG PO (22:08)
[2025-01-09 00:26] LABS: Basophils # (Auto) 0.0 Thou/mm3 (0.0-0.2); Basophils % (Auto) 0 % (0-2.5); Eosinophils # (Auto) 0.0 Thou/mm3 (0.0-0.5); Eosinophils % (Auto) 0 % (0-10); Hematocrit 26.0 % (36.0-46.0); Immature Granulocytes Auto 0.05 Thou/mm3 (0.00-0.00); Lymphocytes # (Auto) 2.8 Thou/mm3 (1.0-4.8); Lymphocytes % (Auto) 19 % (10-50); Mean Corpuscular HGB Conc 31.2 g/dl (31.0-37.0); Mean Corpuscular Hemoglobin 22.6 pg (25.0-35.0); Mean Corpuscular Volume 72 fL (80-100); Monocytes # (Auto) 1.0 Thou/mm3 (0.0-0.8); Monocytes % (Auto) 7 % (0-12); Neutrophils # (Auto) 10.7 Thou/mm3 (1.8-7.7); Neutrophils % (Auto) 73 % (37-80); Nucleated Red Blood Cell # 0.00 Thou/mm3 (0.00-0.00); Nucleated Red Blood Cell % 0 /100 WBC (0); Platelet Count 254 Thou/mm3 (140-440); RDW Standard Deviation 40.7 fL (36.4-46.3); Red Blood Count 3.59 Miln/mm3 (4.00-5.20); White Blood Count 14.6 Thou/mm3 (3.6-11.0)
[2025-01-09 00:29] LABS: Hemoglobin 8.1 g/dL (12.0-16.0)
[2025-01-09 04:15] VITALS: BP 136/82; PULSE 78; RESP 18; TEMP 36.7; O2SAT 98
--- NOTE | 2025-01-09 07:46 | ESPR_ITS ---
Subjective Subjective Interval history: Delivery type: day 1 status post , DM on insulin Patient doing well this morning. No acute complaints. Ambulating, tolerating p.o. and voiding without difficulty. HTN/Pre-Eclampsia screen: No chest pain, shortness of breath, headache, visual changes, epigastric or right upper quadrant pain. Breast-feeding, lochia diminishing. Bowel: Flatus+/ BM+ Exam Vital Signs Temp Pulse Resp BP Pulse Ox O2 Del Method 98.0 F 78 18 136/82 H 98 Room Air 01/09/25 04:15 01/09/25 04:15 01/09/25 04:15 01/09/25 04:15 01/09/25 04:15 01/09/25 04:15 Constitutional Constitutional: no acute distress Routine HEENT Exam Head: Present normocephalic and atraumatic Eye: Present EOMI and PERRL ENT: Present mucous membranes moist Routine Neck Exam Neck: Present supple and trachea midline Routine Respiratory Exam Respiratory: Present chest non-tender, lungs clear, normal breath sounds and no resp distress Routine Cardiovascular Exam Cardiovascular: Present RRR Routine Abdominal Exam Abdominal: Present soft and normoactive bowel sounds Routine Extremities Exam Extremities: Present full ROM Routine Skin Exam Skin: Present intact, dry and warm Routine Neurological Exam Neurological: Present alert, oriented X3 and CN II-XII intact Routine Psychiatric Exam Psychiatric: Present normal affect and normal thought process Objective Labs 01/08/25 23:47 01/07/25 20:50 Labs: Laboratory Results - last 24 hr 01/08/25 23:47 WBC 14.6 H RBC 3.59 L Hgb 8.1 L Hct 26.0 L MCV 72 L MCH 22.6 L MCHC 31.2 RDW Std Deviation 40.7 Plt Count 254 D Neut % (Auto) 73 Lymph % (Auto) 19 Whitley % (Auto) 7 Eos % (Auto) 0 Baso % (Auto) 0 Neut # (Auto) 10.7 H Lymph # (Auto) 2.8 Whitley # (Auto) 1.0 H Eos # (Auto) 0.0 Baso # (Auto) 0.0 Immature Gran # (Auto) 0.05 H Absolute Nucleated RBC 0.00 Immature Gran % 0 Nucleated RBC % 0 Assessment & Plan Problem List (1) Encounter for induction of labor: Status: Acute (2) Type 2 diabetes mellitus affecting in third trimester, antepartum: Status: Acute (3) Vaginal delivery: Status: Acute Assessment and plan: 1. Continue routine /post-op care 2. Labs reviewed, cbc appropriate 3. Remove dressing/Tamayo 4. Encourage to ambulate, shower 5. Encourage PO intake, breast feeding 6 continue to monitor for progression of recovery. Possible discharge after she completes 24 hours depending on status of baby discharge Time Spent With Patient Time: Total time spent is greater than 50% in coordination of care (as documented) at patient's floor/unit and/or counseling patient:
[2025-01-09 08:50] VITALS: BP 135/87; PULSE 87; RESP 18; TEMP 36.9; O2SAT 98
--- NOTE | 2025-01-09 09:26 | PC.NURSE ---
Patient cleared by Sulema in social worker health services
[2025-01-09 11:20] VITALS: BP 119/79; PULSE 82; RESP 17; TEMP 36.7; O2SAT 97
[2025-01-09] MEDS: IBUPROFEN TAB 400 MG TABLET 800 MG PO (11:29)
--- NOTE | 2025-01-09 13:03 | PC.CC ---
ASW-Zoie Fraser met with patient [id number] to complete assessment. ASW introduced self, role, and reason for assessment. ASW disclosed limits of confidentiality as well. Patient appeared alert and oriented to self, place, and situation. Patient was pleasant; her mood appeared calm and happy. Patient?s thought process was linear and organized. No signs of delusions, paranoid or AVH. ASW explained the reason for the referral which was due to h/o of anxiety. Pt reported she does have h/o anxiety but stated at this time her anxiety is under control. Pt reports she does not see a mental health therapist for counseling services and denies taking medications for MH purposes. Pt reports she receives WIC and does not receive [place] aid or food stamps. Pt reports she has another child at home and this will be her second child. Pt reports she have a vaginal and feels as if she is healing properly. Pt reports she is breast feeding. Pt reports her significant other and FOB is Genaro Liu and he will be their transportation home. Upon arrival FOB was present and was bonding with . Pt reported she sees Dr. Martinez for care, which was consistent and the infant will see Dr. Reeves; which these providers are located at [facility]. Pt reports she is ready for the and has all she needs at this time. ASW provided community resources such as [facility] MH agencies and local community mental health agencies as well. ASW also provided info to the [facility] and provided the pt with the [facility] free backpack giveaway for children who participate in the immunization and wellness program. Pt was receptive and cooperative. At this time, there are no concerns or worries from SS.
[2025-01-09 15:20] VITALS: BP 124/83; PULSE 84; RESP 17; TEMP 36.9; O2SAT 99
--- NOTE | 2025-01-10 08:46 | CHAP ---
Patient was visited by a Spiritual Care Volunteer on 01/09/2025 between 0900 and 1200 and received comfort, encouragement and/or prayer.
== END 2025-01-09 17:13 | disposition home or self-care (01) | DRG 560 ==
LOC: S4SX 01-08 09:23 → S4NX 01-08 20:05
PROVIDERS: Obstetrics & Gynecology; Admitting Provider Obstetrics & Gynecology; Visit Provider Student in an Organized Health Care Education/Training Program
DX: O24.113 Pre-existing type 2 diabetes mellitus, in pregnancy, third trimester (principal); O70.1 Second degree perineal laceration during delivery; Z3A.39 39 weeks gestation of pregnancy; Z37.0 Single live birth; Z79.4 Long term (current) use of insulin
CPT/HCPCS: 36415; 59409; 76805; 80053; 80307; 82570; 83615; 84156; 84550; 85025; 86780; 86850; 86900; 86901; 94762; J1815; J2405; J2590; J2795; J3010; J7120; A9270

== ENCOUNTER 2025-03-07 18:59 | Emergency (ER) | payer MEDICAID, SELFPAY ==
--- NOTE | 2025-03-07 20:28 | PC.NURSE ---
pT DID NOT ANSWER WHEN NAME WAS CALLED AND WAS NOT FOUND OUTSIDE.
--- NOTE | 2025-03-07 23:51 | PC.NURSE ---
Pt did not answer when name was called from the lobby and was not found outside.
== END 2025-03-08 00:36 | disposition left against medical advice (07) ==
LOC: SERX 21:58
PROVIDERS: Emergency Provider Emergency Medicine
DX: Z53.21 Procedure and treatment not carried out due to patient leaving prior to being seen by health care provider (principal)
CPT/HCPCS: 99281

== ENCOUNTER 2025-03-08 20:05 | Emergency (ER) | payer MEDICAID, SELFPAY ==
[2025-03-08 20:13] VITALS: BP 137/81; PULSE 105; RESP 18; TEMP 37.6; O2SAT 98; BMI 30.4
--- NOTE | 2025-03-08 20:55 | PC.NURSE ---
EMS SAID THEY ARE WAIT FOR 45 MIN FOR ROOM, EMS SAID SHE IS STABLE, THEY WILL SEND PT TO LOBBY TO BE SEEN BY PROVIDER.
--- NOTE | 2025-03-08 21:23 | PD.EDRME ---
Rapid Medical Screening Exam RME Arrival date/time: 03/08/25 20:05 19F with no significant PMH presents to ED with SI, possibly due to PP depression per patient. Chief Complaint: Psychiatric Symptoms Time Seen by Provider: 03/08/25 21:08 Vital signs: Vital Signs Temperature 99.7 F 03/08/25 20:13 Pulse Rate 105 H 03/08/25 20:13 Respiratory Rate 18 03/08/25 20:13 Blood Pressure 137/81 H 03/08/25 20:13 Pulse Oximetry (%) 98 03/08/25 20:13 Oxygen Delivery Method Room Air 03/08/25 20:13
[2025-03-08 22:33] VITALS: BP 106/65; PULSE 86; RESP 14; TEMP 37; O2SAT 99
[2025-03-08 22:44] LABS: HCG Qualitative,Urine Negative
[2025-03-08 23:05] LABS: Alcohol, Urine Negative (Negative); Amphetamine/Methamp Scrn,U Positive (Negative); Barbiturate Screen,Urine Negative (Negative); Benzodiazepines Screen,Urine Negative (Negative); Benzoylecgonine Screen, Ur Negative (Negative); Fentanyl Screen,Urine Negative (Negative); Opiate Screen,Urine Negative (Negative); THC Screen,Urine Negative (Negative)
[2025-03-09 00:27] LABS: Basophils # (Auto) 0.0 Thou/mm3 (0.0-0.2); Basophils % (Auto) 0 % (0-2.5); Eosinophils # (Auto) 0.0 Thou/mm3 (0.0-0.5); Eosinophils % (Auto) 0 % (0-10); Hematocrit 36.2 % (36.0-46.0); Hemoglobin 11.1 g/dL (12.0-16.0); Immature Granulocytes Auto 0.03 Thou/mm3 (0.00-0.00); Lymphocytes # (Auto) 3.0 Thou/mm3 (1.0-4.8); Lymphocytes % (Auto) 29 % (10-50); Mean Corpuscular HGB Conc 30.7 g/dl (31.0-37.0); Mean Corpuscular Hemoglobin 23.5 pg (25.0-35.0); Mean Corpuscular Volume 77 fL (80-100); Monocytes # (Auto) 0.6 Thou/mm3 (0.0-0.8); Monocytes % (Auto) 5 % (0-12); Neutrophils # (Auto) 7.0 Thou/mm3 (1.8-7.7); Neutrophils % (Auto) 65 % (37-80); Nucleated Red Blood Cell # 0.00 Thou/mm3 (0.00-0.00); Nucleated Red Blood Cell % 0 /100 WBC (0); Platelet Count 374 Thou/mm3 (140-440); RDW Standard Deviation 49.4 fL (36.4-46.3); Red Blood Count 4.73 Miln/mm3 (4.00-5.20); White Blood Count 10.7 Thou/mm3 (3.6-11.0)
[2025-03-09 00:58] LABS: Acetaminophen < 2.0 mcg/mL (10.0-20.0); Alcohol, Blood Medical < 3.0 mg/dL (0-10.0); Salicylate < 3.0 mg/dL
--- NOTE | 2025-03-09 04:23 | PD.EDPSYCH ---
ED Psych RME/HPI General Chief Complaint: Psychiatric Symptoms Stated Complaint: MENTAL EVAL Time Seen by Provider: 03/08/25 21:08 Arrival date/time: 03/08/25 20:05 RME / HPI RME / HPI Narrative: 03/08/25 20:05 19F with no significant PMH presents to ED with SI, possibly due to PP depression per patient. DR. GARCIAS MAIN ED EVALUATION: Patient with long-standing Hx of depression weened off of Sertraline approximately 1 year [employer], post- 2 months, now with increasing depression. No auditory hallucinations reported. Notes reduced concentration and recent SI with a plan. No HI or paranoid delusions. PMH: Depression/Anxiety. PSH: Non-contributory. Social: Negative for tobacco, Alcohol, and illicit drug use. Related Data Home Medications ?Medication ?Instructions ?Recorded ?Confirmed vit no.95-ferrous 1 tab PO QDAY 11/14/24 01/02/25 fumarate 28 mg-folic acid 800 mcg tablet () insulin NPH isoph U-100 human 100 15 unit subcut BID Gestational 01/02/25 01/02/25 unit/mL (3 mL) subcutaneous pen Diabetes (Humulin N NPH U-100 Insulin KwikPen) Allergies Allergy/AdvReac Type Severity Reaction Status Date / Time No Known Allergies Allergy Verified 03/07/25 19:02 Review of Systems Review of Systems Systems Reviewed: All systems reviewed, normal except as documented Past Medical History Past Medical History NEUROLOGIC: Positive Migraine HEMATOLOGIC: Positive Anemia (recently) PSYCHO/SOCIAL: Positive Depression and Anxiety OTHER HISTORY: Positive Falls (32 weeks fell) Surgical History SURGICAL: Positive Adenoidectomy Social History SMOKING STATUS: Current some day smoker SECOND HAND EXPOSURE: Yes (clau father of baby) ED Exam Narrative Physical exam: GEN. APPEARANCE: The patient is alert awake oriented X-3 in no distress, lying down comfortably, does not look ill/toxic. Patient has good eye contact. Patient is cooperative. VITALS: All vitals were reviewed and the pulse ox is 99% on room air which is normal according to my interpretation. HEENT: Normocephalic, atraumatic. Pupils are equal and reactive. Oral mucosa is moist. Patent Nares NECK: Supple, nontender, no thyromegaly, no meningismus, no JVD, no step offs CHEST: Symmetrical, atraumatic, and with equal expansion , Nontender on palpation no deformity and no crepitus. CARDIOVASCULAR: Heart regular rhythm no murmur or gallop rub or extra beats. LUNGS: Clear to auscultation bilaterally with symmetrical chest rise. No laboring tachypnea or wheezing. No intercostal subcostal retraction. No rales and no rhonchi. ABDOMEN: Soft, flat, nontender to palpation, no guarding or rebound tenderness. There are no abnormal masses palpated. Active and normal bowel sounds. EXTREMITIES: Nontender. No edema. No cyanosis. Patient is able to move all 4 extremities well, with full ROM and good CSM. SKIN: Warm and dry, no jaundice or rashes noted. MUSCULOSKELETAL: No lubar or midline bony tenderness. There is no CVA tenderness. No paraspinal muscle spasm or tenderness. NEURO: Patient is ARRIAGA x 4, Cranial nerves II through XII grossly intact. There is no focal neurologic deficits noted. GCS is 15, PNS and PEDIATRICS PHYSICIAN appear grossly intact. PSYCHIATRIC: Appears depressed, slightly withdrawn, gola-directed speech, no active SI/HI. Course Quality Measures none Orders Category Date Time Status Acetaminophen Stat Lab 03/08/25 23:56 Completed Alcohol, Blood Medical Stat Lab 03/08/25 23:56 Completed Alcohol, Urine Stat Lab 03/08/25 22:28 Completed CBC Stat Lab 03/08/25 23:56 Completed Drug Screen,Urine Stat Lab 03/08/25 22:28 Completed HCG Qualitative,Urine Stat Lab 03/08/25 22:28 Completed Salicylate Stat Lab 03/08/25 23:56 Completed Vital Signs Vital signs: Vital Signs Temperature 99.7 F 03/08/25 20:13 Pulse Rate 105 H 03/08/25 20:13 Respiratory Rate 18 03/08/25 20:13 Blood Pressure 137/81 H 03/08/25 20:13 Pulse Oximetry (%) 98 03/08/25 20:13 Oxygen Delivery Method Room Air 03/08/25 20:13 Psych MDM Narrative MDM Narrative:: Scribe Attestation: IJessica, am scribing for and in the presence of Dr. Garcias. Provider Notation: Although this document has been carefully reviewed, there may still be some phonetic and other typographical errors. These errors are purely grammatical due to imperfections in the software program and should not be construed in any way to compromise the substance of the patient's medical care during this visit. Patient with long-standing Hx of depression weened off of Sertraline approximately 1 year [employer], post- 2 months, now with increasing depression. No auditory hallucinations reported. Please see PE findings. Laboratory markers including CBC demonstrate WBC of 10 and hemoglobin of 11.1 with normal platelet count. Serum chemistries demonstrates marginally elevated alkaline phosphatase, essentially negative. Urine preg negative. Tox profile positive for amphetamine, if at all undetected. Patient is medically cleared for psychiatric evaluation. Causative factors for worsening depression may include post- depression, substance abuse, and anxiety. Will contact psychiatric services for evaluation. Patient data External records reviewed:: [facility] previous records (Reviewed prior ED records from 09/08/24. Patient was seen for Normal ear exam.) Clinical information provided by:: patient Social determinants that could affect healthcare access:: mental health Patient has the following chronic illnesses:: Depression, Anxiety How is presenting disease/condition affected by chronic disease/condition?: exacerbated by Evaluation data The following diagnostics were reviewed and interpreted by me:: lab results Lab and/or radiology exams considered but not ordered:: None Interpretation Summary: See MDM above Medications / Prescriptions Medications or Prescriptions considered but not ordered:: None Medication administrations:: See above if any Consultations Consultation(s) initiated? (list below): No Diagnosis Psych Differential Diagnosis: acute psychosis, chronic schizophrenia, suicidal ideation, bipolar disorder, depression, drug-induced psychotic disorder, acute anxiety and other (Post- depression) Most likely diagnosis given after review of the tests above:: Chronic depression, Suicidal ideation Admission Indicated Admission indicated?: not indicated Explain why admission is indicated or not indicated:: Pending consult with social service liaison in the morning Admission Request Was there a request for admission?: No Disposition Plan Disposition Plan: other (specify) (Signed out to Dr. Casillas at 6 AM) Discharge Plan Prescriptions/Referrals Prescriptions/Med Rec: No Action Humulin N NPH Insulin KwikPen 100 unit/mL (3 mL) insulin pen 15 unit SUBCUT BID PNV no.95-ferrous fumarate-FA [] 28 mg iron- 800 mcg tablet 1 tab PO QDAY Referrals: Ryan Aldrich MD [Primary Care Provider, Family Practice] - In 1 week Problem List Clinical Impression: Suicidal ideation, Chronic depression Patient/Caregiver Discharge Instructions Print Language: Malagasy
[2025-03-09 04:54] VITALS: BP 119/80; PULSE 86; RESP 19; TEMP 36.6; O2SAT 100
--- NOTE | 2025-03-09 07:09 | PD.EDADDENDU ---
Emergency Room Addendum Addendum Narrative: Patient is a 19-year-old female with intermittent, and thoughts of self-harm. She brought her self-harm, she is 2 months . She used to be on psychiatric medications before however has been off since her . Patient review of systems is otherwise negative. No SI no HI. Patient review of systems negative for other localizing symptoms for possible intracranial pathology or other organic causes for patient's current presentation. Patient evaluated overnight. Medically cleared. Drug screen is positive for methamphetamines. Patient is medically cleared patient needing social work evaluation. On my evaluation patient resting comfortably in bed, not distressed. SW evaluated patient, cleared for dc after safety planning.
[2025-03-09 07:58] VITALS: BP 115/76; PULSE 81; RESP 16; TEMP 36.8; O2SAT 99
[2025-03-09 11:20] VITALS: BP 137/87; PULSE 97; RESP 16; TEMP 36.7; O2SAT 97
--- NOTE | 2025-03-09 14:47 | PC.CC ---
[facility] Crisis team Meli Cisneros and Lucio Ruiz responded to assess the pt. After their evaluation, pt will d/c on a safety plan and will f/u with pscyhiatric services with [facility]. Pts safety plan is in the Chart. Pt was referred to CWS/CPS as per Meli Cisneros and the pts child is in temporary foster placement. Pt was provided community resources by [facility] Crisis team members. [facility] will also f/u with pt for additional supportive services.
== END 2025-03-09 11:21 | disposition home or self-care (01) ==
PROVIDERS: Emergency Medicine; Physician Assistant; Emergency Provider Emergency Medicine; PCP Family Medicine
DX: R45.851 Suicidal ideations (principal); F32.A Depression, unspecified; F41.9 Anxiety disorder, unspecified
CPT/HCPCS: 36415; 80307; 80320; 80329; 81025; 85025; 96127; 99283; G0480